=== PATIENT | male | born 1950 | race Caucasian/White ===

== ENCOUNTER 2017-06-13 11:26 | Emergency (ER) | END 2017-06-13 13:56 | disposition home or self-care (01) ==

== ENCOUNTER 2017-06-21 17:56 | Emergency (ER) | END 2017-06-21 20:26 | disposition home or self-care (01) ==

== ENCOUNTER 2017-06-23 18:30 | Emergency (ER) | END 2017-06-23 22:10 | disposition home or self-care (01) ==

== ENCOUNTER 2019-04-11 21:19 | Emergency (ER) | payer OTHER ==
[~2019-04-11] VITALS: Ht 172.7 cm; Wt 78.8 kg
[~2019-04-11 21:19] MED LIST: BEN25 PO; CEPH-443 PO; CIPR500T4 PO; FAMO-96 PO; FLUC150T PO; HC30CR25 TOP; MED4DP PO; NITR-58 PO; PHEN-537 PO; SULF1TAB31 PO
[2019-04-11 21:30] VITALS: BP 165/69; PULSE 60; RESP 16; Ht 172.7 cm; Wt 78.8 kg
[2019-04-11] MEDS ORDERED: DEXAMETHASONE 10 MG/ML 1 ML INJ IM ONE (23:30)
[2019-04-11] MEDS ORDERED: DIPHENHYDRAMINE 25 MG CAP PO ONE (23:30)
[2019-04-11] MEDS ORDERED: FAMOTIDINE 20 MG TAB PO ONE (23:30)
== END 2019-04-12 00:24 | disposition home or self-care (01) ==
LOC: FTE 21:19
DX: L50.9 Urticaria, unspecified (principal); I10 Essential (primary) hypertension; E11.9 Type 2 diabetes mellitus without complications; F17.210 Nicotine dependence, cigarettes, uncomplicated
CPT/HCPCS: 96372; 99284; J1100